=== PATIENT | male | born 1985 | race American Indian/Alaskan Native ===

== ENCOUNTER 2016-09-11 14:10 | Emergency (ER) | payer SELFPAY ==
[2016-09-11 21:08] VITALS: BP 129/87
--- NOTE | 2016-09-11 21:13 | XRay Report ---
FINAL REPORT PROCEDURE: XR CHEST ROUTINE 2V TECHNIQUE: PA and lateral chest radiographs were obtained. CPT 12492 HISTORY: cough prod green/brownish COMPARISON: No prior studies are available for comparison. FINDINGS: Heart: Normal. Mediastinum/Vessels: Normal. Lungs/Pleural space: Normal. Bony thorax: No acute osseous abnormality. Other: IMPRESSION: No acute pulmonary process.
--- NOTE | 2016-09-11 21:53 | Emergency Department Report ---
Entered by QUOC HOLT, acting as scribe for CHHAYA AMARO PA. - General Chief Complaint: Upper Respiratory Infection Stated Complaint: CHEST PAIN Time Seen by Provider: 09/11/16 20:34 Source: patient Mode of arrival: Ambulatory Limitations: No Limitations - History of Present Illness Initial Comments: 31 year old male presents to the ED for evaluation of chronic productive cough for 3 months. Patient states he has not taken any medications or been evaluated since onset. He reports sputum has been green in color. He reports chest pain with cough. Patient admits to intermittent fever only to 2 weeks ago that has not resolved. Patient also states yesterday sputum had some change in a collar to brownish tinged. Denies abdominal pain, nausea, shortness of breath, vomiting, ear pain, and rhinorrhea. MD Complaint: cough (productive cough with green sputum) Onset/Timin -: month(s) Consistency: constant Improves With: nothing Worsens With: nothing Associated Symptoms: chest pain (with cough). denies: fever, chills, rhinorrhea , nasal congestion, sore throat, shortness of breath, abdominal pain, nausea, vomiting, diarrhea, ear pain Treatments Prior to Arrival: none - Related Data Previous Rx's Medication Instructions Recorded Last Taken Type Azithromycin [Zithromax] 250 mg PO DAILY #6 tablet 09/11/16 Unknown Rx guaiFENesin ER [Mucinex ER] 600 mg PO Q12H #10 tablet.er 09/11/16 Unknown Rx Allergies Allergy/AdvReac Type Severity Reaction Status Date / Time No Known Allergies Allergy Unverified 09/11/16 14:15 ED Review of Systems Comment: All other systems reviewed and negative Constitutional: denies: chills, fever Eyes: denies: eye pain, eye discharge, vision change ENT: denies: ear pain, throat pain Respiratory: cough (with green sputum). denies: shortness of breath, SOB with exertion, SOB at rest, wheezing Cardiovascular: chest pain (with cough) Endocrine: no symptoms reported Gastrointestinal: denies: abdominal pain, nausea, vomiting, diarrhea Genitourinary: denies: urgency, dysuria Musculoskeletal: denies: back pain, joint swelling, arthralgia Skin: denies: rash, lesions Neurological: denies: headache, weakness, paresthesias Psychiatric: denies: anxiety, depression Hematological/Lymphatic: denies: easy bleeding, easy bruising ED Past Medical Hx - Past Medical History Previous Medical History?: No - Surgical History Past Surgical History?: No - Social History Smoking Status: Current Every Day Smoker Substance Use Type: Alcohol - Medications Home Medications: Home Medications Medication Instructions Recorded Confirmed Last Taken Type Azithromycin [Zithromax] 250 mg PO DAILY #6 tablet 09/11/16 Unknown Rx guaiFENesin ER [Mucinex ER] 600 mg PO Q12H #10 tablet.er 09/11/16 Unknown Rx ED Physical Exam - General Limitations: No Limitations - Other Other exam information: GENERAL: Alert and oriented x3, no apparent distress, atraumatic. HEAD: Head is normocephalic and atraumatic. EYES: Extra ocular muscles are intact. Pupils are equal, round, and reactive to light and accommodation. EARS: symmetrical, atraumatic, non tender, ear canal clear and moderate cerumen , tympanic membrane non inflamed. gross auditory nml bilaterally. NOSE: Nose symmetrical, Nontender, Nares appeared normal. MOUTH:Mouth is well hydrated and without lesions. Tonsils nonerythematous or swollen, Uvula midline, Tongue not elevated. Mucous membranes are moist. Posterior pharynx clear, no exudate or lesions. Patent airways. NECK: Supple. No lymphadenopathy or thyromegaly. LUNGS: Symetrical with respiration, No wheezing, no rales or crackles, CTAB. HEART: S1, S2 present, regular rate and rhythm without murmur, no rubs, no gallops. ABDOMEN: soft, and non-distended. Nontender to palpation on all quadrants. PSYCHIATRIC: Mood is congruent with affect SKIN: Warm and dry. ED Course Vital Signs 09/11/16 09/11/16 14:16 20:00 Temperature 98.6 F 98.1 F Pulse Rate 84 97 H Respiratory 18 20 Rate Blood Pressure 132/88 Blood Pressure 129/87 [Right] O2 Sat by Pulse 100 100 Oximetry ED Medical Decision Making - Radiology Data Radiology results: report reviewed, image reviewed FINAL REPORT PROCEDURE: XR CHEST ROUTINE 2V TECHNIQUE: PA and lateral chest radiographs were obtained. CPT 35552 HISTORY: cough prod green/brownish COMPARISON: No prior studies are available for comparison. FINDINGS: Heart: Normal. Mediastinum/Vessels: Normal. Lungs/Pleural space: Normal. Bony thorax: No acute osseous abnormality. Other: IMPRESSION: No acute pulmonary process. Transcribed By: [facility] [place] Dictated By: TERRIE ONTIVEROS Electronically Authenticated By: TERRIE ONTIVEROS Signed Date/Time: 09/11/162108 - Medical Decision Making 31-year-old male presents with upper respiratory infection/bronchitis. ED course: Chest x-ray ordered. Chest x-ray shows Discussed findings with patient. Discussed the patient antibiotic therapy. Discussed the patient to follow up with primary care physician. Vital signs stable patient is in no respiratory distress. ED Disposition Clinical Impression: Bronchitis URI (upper respiratory infection) Qualifiers: URI type: unspecified URI Qualified Code(s): J06.9 - Acute upper respiratory infection, unspecified Disposition: DISCHARGED TO HOME OR SELFCARE Is pt being admited?: No Does the pt Need Aspirin: No Condition: Stable Instructions: Upper Respiratory Infection (ED), Acute Bronchitis (ED), Chronic Bronchitis (ED) Prescriptions: Azithromycin [Zithromax] 250 mg PO DAILY #6 tablet guaiFENesin ER [Mucinex ER] 600 mg PO Q12H #10 tablet.er Referrals: PRIMARY CAREMD [Primary Care Provider] - 3-5 Days THONY CANADA MD [Referring] - 3-5 Days [facility] [Outside] - 3-5 Days [facility] - 3-5 Days [facility] [Outside] - 3-5 Days Forms: Work/School Release Form(ED) Time of Disposition: 21:44 This documentation as recorded by the JONATHON gregg REBEKAH,accurately reflects the service I personally performed and the decisions made by SONDRA garcia OYINLOLA A, PA.
== END 2016-09-11 21:55 | disposition home or self-care (01) ==
LOC: ED 14:10
DX: J40 Bronchitis, not specified as acute or chronic (principal); J06.9 Acute upper respiratory infection, unspecified; F17.200 Nicotine dependence, unspecified, uncomplicated; Z53.21 Procedure and treatment not carried out due to patient leaving prior to being seen by health care provider
CPT/HCPCS: 71020

== ENCOUNTER 2019-05-15 23:49 | Emergency (ER) | payer SELFPAY ==
[2019-05-16 00:35] VITALS: BP 145/106
[2019-05-16] MEDS ORDERED: TETANUS,DIPH,PERTUSS(ACELL) VACCINE 0.5 ML SYRINGE IM ONE (01:30)
[2019-05-16] MEDS ORDERED: LIDOCAINE (2%) 20 MG/1 ML VIAL 20 ML MDV INFILTRATI ONE (01:30)
[2019-05-16] MEDS ORDERED: HYDROcodone/ACETAMINOPHEN 10-325MG TAB PO ONE (01:30)
--- NOTE | 2019-05-16 03:15 | Emergency Department Report ---
ED Laceration HPI - HPI Chief Complaint: Wound/Laceration Stated Complaint: LT HAND LACERATION Time Seen by Provider: 05/16/19 01:15 Occurred When: Yesterday Location: Upper Extremity Severity: mild Tetanus Status: Not up to Date Laceration Symptoms: Yes Pain, No Foreign Body Sensation, No Numbness, No Weakness Other History: This is a 34-year-old male nontoxic, well nourished in appearance, no acute signs of distress presents to the ED with c/o of left hand laceration between middle and ring finger. Patient stated he asked that we cut himself by metal at work. Patient denies decreased sensation or range of motion. Patient stated bleeding is under control. Denies any numbness, tingling, fever, chills, nausea, vomiting, chest pain, shortness of breath, headache or stiff neck. Patient denies any allergies to significant past medical history. Patient is that he is not up-to-date with tetanus. ED Review of Systems ROS: Stated complaint: LT HAND LACERATION Other details as noted in HPI Constitutional: denies: chills, fever Eyes: denies: eye pain, eye discharge, vision change ENT: denies: ear pain, throat pain Respiratory: denies: cough, shortness of breath, wheezing Cardiovascular: denies: chest pain, palpitations Endocrine: no symptoms reported Gastrointestinal: denies: abdominal pain, nausea, diarrhea Genitourinary: denies: urgency, dysuria Musculoskeletal: denies: back pain, joint swelling, arthralgia Skin: denies: rash, lesions Neurological: denies: headache, weakness, paresthesias Psychiatric: denies: anxiety, depression Hematological/Lymphatic: denies: easy bleeding, easy bruising ED Past Medical Hx - Past Medical History Previous Medical History?: No - Surgical History Past Surgical History?: No - Social History Smoking Status: Current Every Day Smoker Substance Use Type: None - Medications Home Medications: Home Medications Medication Instructions Recorded Confirmed Last Taken Type Azithromycin [Zithromax] 250 mg PO DAILY #6 tablet 09/11/16 Unknown Rx guaiFENesin ER [Mucinex ER] 600 mg PO Q12H #10 tablet.er 09/11/16 Unknown Rx Acetaminophen/Codeine [Tylenol 1 tab PO Q6H PRN #12 tab 05/16/19 Unknown Rx /Codeine # 3 tab] Sulfamethoxazole/Trimethoprim 1 each PO BID #14 tablet 05/16/19 Unknown Rx [Bactrim DS TAB] Laceration Physical Exam - Exam General: Vital signs noted. No distress. Alert and acting appropriately. Wound Length (cm): 2 Laceration Location: Upper Extremity Laceration Exam: Yes Normal Distal CMS, No Foreign Body, No Exposed Tendon, Vessel, or Nerve, No Tendon Injury ED Course Vital Signs 05/16/19 05/16/19 00:24 00:31 Temperature 97.9 F 98.2 F Pulse Rate 75 75 Respiratory 18 18 Rate Blood Pressure 151/106 145/106 O2 Sat by Pulse 98 98 Oximetry - Reevaluation(s) Reevaluation #1: 05/16/19 03:14 Patient is speaking in full sentences with no signs of distress noted. - Laceration /Wound Repair Left Hand Wound Location: upper extremity (left hand) Wound Length (cm): 2 Wound's Depth, Shape: superficial Wound Explored: clean Irrigated w/ Saline (ccs): 40 Betadine Prep?: Yes Volume Anesthetic (ccs): 3 (2% lidocaine plain) Wound Debrided: minimal Suture Size/Type: 3:0, proline Number of Sutures: 3 Layer Closure?: No Sterile Dressing Applied?: Yes Progress: Under sterile field, I used Betadine to clean the area. I then used 40 mL of normal saline to flush the area. I then used 2% lidocaine plain and injected 3 mL to the wound. I then used a 3-0 Prolene to suture the laceration. Number of stitches 3. I then applied a sterile 4 x 4 with tape. Minimal bleeding noted but is under control. Patient tolerated procedure well with no signs of distress. ED Medical Decision Making - Medical Decision Making This is a 34-year-old male that presents with laceration. Patient is stable and was examined by me. The laceration suturing has been performed and has been performed and patient tolerated well. A sterile dressing has been applied. Patient was educated on proper wound care. Patient is discharged with Bactrim and Tylenol with codeine and was instructed not to operate any machinery while taking Tylenol with codeine due to drowsiness. Patient was instructed to return in 10 days for suture removal. Patient was instructed to refer to Follow-up with a primary care doctor in 3-5 days or if symptoms worsen and continue return to emergency room as soon as possible. At time of discharge, the patient does not seem toxic or ill in appearance. No acute signs of distress noted. Patient agrees to discharge treatment plan of care. No further questions noted by the patient. Critical care attestation.: If time is entered above; I have spent that time in minutes in the direct care of this critically ill patient, excluding procedure time. ED Disposition Clinical Impression: Laceration Disposition: DC-01 TO HOME OR SELFCARE Is pt being admited?: No Does the pt Need Aspirin: No Condition: Stable Instructions: Laceration (ED), Suture Care (ED), Acetaminophen/Codeine (By mouth) Additional Instructions: Follow-up with a primary care doctor in 3-5 days or if symptoms worsen and continue return to emergency room as soon as possible. Do not operate any machinery while taking Tylenol with codeine as this may cause drowsiness. Return in 10 days for suture removal. Prescriptions: Sulfamethoxazole/Trimethoprim [Bactrim DS TAB] 1 each PO BID #14 tablet Acetaminophen/Codeine [Tylenol /Codeine # 3 tab] 1 tab PO Q6H PRN #12 tab PRN Reason: Pain , Severe (7-10) Referrals: PRIMARY CARE, [Primary Care Provider] - 3-5 Days EDUARDO HANKS MD [Staff Physician] - 3-5 Days [facility] [Outside] - 3-5 Days [facility] [Outside] - 3-5 Days Forms: Work/School Release Form(ED)
== END 2019-05-16 03:26 | disposition home or self-care (01) ==
LOC: ED 23:49
DX: S61.412A Laceration without foreign body of left hand, initial encounter (principal); F17.200 Nicotine dependence, unspecified, uncomplicated; Z79.899 Other long term (current) drug therapy; W26.8XXA Contact with other sharp object(s), not elsewhere classified, initial encounter; Y93.89 Activity, other specified; Y92.89 Other specified places as the place of occurrence of the external cause; Y99.8 Other external cause status
CPT/HCPCS: 90471; 90715